=== PATIENT | male | born 1975 | race Caucasian/White ===

== ENCOUNTER 2018-05-01 09:54 | Emergency (ER) | payer BC, OTHER ==
[2018-05-01 10:04] VITALS: BP 151/100; PULSE 89; RESP 18; TEMP 98.2
--- NOTE | 2018-05-01 10:29 | ED ---
Lower Extremity Injury HPI - General Chief Complaint: Extremity Injury, Lower Stated Complaint: Foot injury Time Seen by Provider: 05/01/18 10:11 Source: patient, RN notes reviewed Mode of arrival: wheelchair Limitations: no limitations - History of Present Illness Initial Comments: 42-year-old male presented to ER for treatment right foot injury. Patient states he slipped on some clothes going down a step states that he rolled his foot and ankle region. Patient states he woke up today that his foot is swollen , painful and bruised. Patient has had no prior fractures no proximal right leg pain no proximal ankle pain. - Related Data Previous Rx's Medication Instructions Recorded Ibuprofen [Motrin] 600 mg PO Q8HR PRN #30 tab 05/01/18 Allergies Allergy/AdvReac Type Severity Reaction Status Date / Time No Known Allergies Allergy Verified 05/01/18 10:04 Review of Systems ROS Statement: Those systems with pertinent positive or pertinent negative responses have been documented in the HPI. ROS Other: All systems not noted in ROS Statement are negative. Past Medical History Past Medical History: Hypertension History of Any Multi-Drug Resistant Organisms: None Reported Past Surgical History: Hernia Repair, Orthopedic Surgery Past Psychological History: No Psychological Hx Reported Smoking Status: Current every day smoker Past Alcohol Use History: Occasional Past Drug Use History: None Reported General Exam Limitations: no limitations General appearance: alert, in no apparent distress Head exam: Present: atraumatic, normocephalic, normal inspection Respiratory exam: Present: normal lung sounds bilaterally. Absent: respiratory distress, wheezes, rales, rhonchi, stridor Cardiovascular Exam: Present: regular rate, normal rhythm, normal heart sounds. Absent: systolic murmur, diastolic murmur, rubs, gallop, clicks Extremities exam: Present: other (Right foot is ecchymotic, tenderness with palpation, mild swelling no ankle tenderness leg and foot neurovascular intact) Skin exam: Present: warm, dry, intact, normal color. Absent: rash Course Vital Signs 05/01/18 10:02 Temperature 98.2 F Pulse Rate 89 Respiratory 18 Rate Blood Pressure 151/100 O2 Sat by Pulse 100 Oximetry Procedures - Orthopedic Splinting/Casting Injury #1 Side: right Lower Extremity Injury Location: short leg, foot Lower Extremity Immobilizer: posterior splint, synthetic pre-padded splint Medical Decision Making - Medical Decision Making 42-year-old male presented for right foot injury. Patient has a Aburto fracture of the right foot. Patient was splinted and will follow-up with orthopedics. Disposition Clinical Impression: Foot fracture, right Disposition: HOME SELF-CARE Condition: Stable Instructions: Foot Fracture in Adults (ED) Additional Instructions: Please return to the Emergency Department if symptoms worsen or any other concerns. Prescriptions: Ibuprofen [Motrin] 600 mg PO Q8HR PRN #30 tab PRN Reason: Pain Is patient prescribed a controlled substance at d/c from ED?: No Referrals: Cirilo Leal MD [Primary Care Provider] - 1-2 days Joan Amezcua DO [Doctor of Osteopathic Medicine] - 1-2 days Time of Disposition: 10:56
--- NOTE | 2018-05-01 10:50 | XR ---
EXAMINATION TYPE: XR foot complete RT , 3 VIEWS DATE OF EXAM ORDERED: 05/01/2018 HISTORY: Pain. COMPARISON: None. FINDINGS: There is a fusion of the middle and distal phalanx of the fourth digit. There is a mildly displaced fracture the base of the fifth metatarsal. No additional fractures are seen. IMPRESSION: "POOLE" FRACTURE OF THE FIFTH METATARSAL. CODE A: INITIAL ENCOUNTER FOR CLOSED FRACTURE.
[2018-05-01] MEDS ORDERED: ACET/COD 300 MG/30 MG STARTER PACK 6 TAB BTL PO STA (10:56)
== END 2018-05-01 11:15 | disposition home or self-care (01) ==
LOC: EC 09:54
DX: S92.811A Other fracture of right foot, initial encounter for closed fracture (principal); F17.200 Nicotine dependence, unspecified, uncomplicated; X50.1XXA Overexertion from prolonged static or awkward postures, initial encounter; Y92.009 Unspecified place in unspecified non-institutional (private) residence as the place of occurrence of the external cause
CPT/HCPCS: 29515; 99283

== ENCOUNTER 2020-02-22 11:28 | Emergency (ER) | payer OTHER ==
[2020-02-22 11:45] VITALS: BP 157/97; PULSE 91; RESP 16; TEMP 98
[2020-02-22] MEDS ORDERED: KETOROLAC 30 MG/ML 1 ML VIAL IVP STA (11:55)
[2020-02-22] MEDS ORDERED: DIAZEPAM 5 MG/ML 2 ML INJ IM ONE (11:56)
--- NOTE | 2020-02-22 12:02 | ED ---
General Adult HPI - General Chief complaint: Extremity Injury, Upper Stated complaint: neck & arm pain-10 days Time Seen by Provider: 02/22/20 11:46 Source: patient, RN notes reviewed, old records reviewed Mode of arrival: ambulatory Limitations: no limitations - History of Present Illness Initial comments: 44-year-old male otherwise healthy presenting with pain in his left upper extremity, left neck. Patient states one week ago was playing with his children, developed pain in this region. This has progressed to muscle spasm, some numbness on the posterior aspect of his upper arm. He is in severe pain. He was seen at an outside hospital prescribed Toradol and prednisone this has not significantly improved his symptoms. Denies any lower extremity symptoms. Denies chest pain or dyspnea. No fever or chills. Patient is otherwise healthy. - Related Data Previous Rx's Medication Instructions Recorded Ibuprofen [Motrin] 600 mg PO Q8HR PRN #30 tab 05/01/18 Diazepam [Valium] 5 mg PO TID PRN 3 Days #9 tab 02/22/20 Ibuprofen [Motrin] 600 mg PO Q8HR PRN #24 tab 02/22/20 Allergies Allergy/AdvReac Type Severity Reaction Status Date / Time No Known Allergies Allergy Verified 02/22/20 11:42 Review of Systems ROS Statement: Those systems with pertinent positive or pertinent negative responses have been documented in the HPI. ROS Other: All systems not noted in ROS Statement are negative. Past Medical History Past Medical History: Hypertension History of Any Multi-Drug Resistant Organisms: None Reported Past Surgical History: Hernia Repair, Orthopedic Surgery Past Psychological History: No Psychological Hx Reported Smoking Status: Current every day smoker Past Alcohol Use History: Occasional Past Drug Use History: None Reported General Exam Limitations: no limitations General appearance: alert, in no apparent distress Head exam: Present: atraumatic, normocephalic Eye exam: Present: normal appearance, PERRL ENT exam: Present: normal exam Neck exam: Present: normal inspection, tenderness. Absent: meningismus, full ROM (Muscle spasm, left paraspinal cervical muscles, no midline tenderness, no step off.) Respiratory exam: Present: normal lung sounds bilaterally. Absent: respiratory distress, wheezes, rales, rhonchi, chest wall tenderness, accessory muscle use Cardiovascular Exam: Present: regular rate, normal rhythm GI/Abdominal exam: Present: soft. Absent: distended, tenderness, guarding Extremities exam: Present: normal inspection, normal capillary refill, other (5 out of 5 strength in bilateral upper extremities, normal key cutter strength on the left, pain with range of motion at the shoulder predominantly in the trapezius and paraspinal muscles with muscle spasm. Minimal torticollis.) Back exam: Present: normal inspection, full ROM. Absent: tenderness, CVA tenderness (R) Neurological exam: Present: alert, CN II-XII intact. Absent: motor sensory defi cit Course Vital Signs 02/22/20 11:43 Temperature 98.0 F Pulse Rate 91 Respiratory 16 Rate Blood Pressure 157/97 O2 Sat by Pulse 100 Oximetry Medical Decision Making - Medical Decision Making 44-year-old with cervical strain, cervical radiculopathy muscle spasm. Symptoms are musculoskeletal, no alarming features. Tender to palpation, tenderness with range of motion. Will attempt Motrin and Valium for muscle spasm. He will follow-up with his primary care physician. He may further evaluation, possible imaging if symptoms persist. Disposition Clinical Impression: Cervical radiculopathy Disposition: HOME SELF-CARE Condition: Good Instructions (If sedation given, give patient instructions): Cervical Radiculopathy (ED), Neck Pain (ED) Prescriptions: Ibuprofen [Motrin] 600 mg PO Q8HR PRN #24 tab PRN Reason: Pain Diazepam [Valium] 5 mg PO TID PRN 3 Days #9 tab PRN Reason: Muscle Spasm Is patient prescribed a controlled substance at d/c from ED?: No Referrals: Nando Montes MD [Primary Care Provider] - 1-2 days Time of Disposition: 12:00
[2020-02-22] MEDS ORDERED: KETOROLAC 30 MG/ML 1 ML VIAL IM STA (12:19)
== END 2020-02-22 12:28 | disposition home or self-care (01) ==
LOC: EC 11:28
DX: S16.1XXA Strain of muscle, fascia and tendon at neck level, initial encounter (principal); F17.200 Nicotine dependence, unspecified, uncomplicated; X58.XXXA Exposure to other specified factors, initial encounter
CPT/HCPCS: 96372 ×2; 99283; J3360; J1885

== ENCOUNTER → 2020-02-27 | Outpatient (CLI) | payer OTHER ==
--- NOTE | 2020-02-27 10:54 | XR ---
EXAMINATION TYPE: XR shoulder limited LT DATE OF EXAM: 02/27/2020 CLINICAL HISTORY: Pain. TECHNIQUE: Three views of the left shoulder are obtained. COMPARISON: Prior shoulder x-ray January 03, 2013. FINDINGS: There is no acute fracture evident in the left shoulder. There is chronic AC joint separat ion with well-defined ossific fragments or ossification below the distal clavicle, some progression i n size from prior. Glenohumeral joint is maintained. The visualized ribs are intact and unremarkable . IMPRESSION: Chronic AC joint separation injury.
--- NOTE | 2020-02-27 10:55 | XR ---
EXAMINATION TYPE: XR cervical spine limited DATE OF EXAM: 02/27/2020 TECHNIQUE: Frontal, lateral, and open mouth view of the cervical spine are obtained. HISTORY: M54.2 cevicalgia COMPARISON: None FINDINGS: The cervical spine is visualized in its entirety from C1 thru the bottom of C7 level, ther e is grade 1 retrolisthesis C2 on C3 and to greater degree C3 on C4 in alignment without evidence of acute fracture or dislocation. Suboptimal evaluation of the C7-T1 disc space without dedicated swimm er's view. The pre-vertebral soft tissue appears within normal limits. The C1-C2 articulation is wit hin normal limits on the open mouth view. Vertebral body heights are maintained. Mild disc space narr owing C5-C6 level. Overlying soft tissue is unremarkable. IMPRESSION: As above.
== END | disposition home or self-care (01) ==
LOC: RADXRMAIN 10:32
PROVIDERS: ATTEND Internal Medicine
DX: M43.12 Spondylolisthesis, cervical region (principal); M99.71 Connective tissue and disc stenosis of intervertebral foramina of cervical region; S43.102A Unspecified dislocation of left acromioclavicular joint, initial encounter
CPT/HCPCS: 72040